=== PATIENT | female | born 1945 | race Caucasian/White ===

== ENCOUNTER 2023-08-17 10:02 | Observation (INO) ==
--- NOTE | 2023-07-25 09:22 | PAT Medication Instructions ---
Medication Instructions Date of Service July 25, 2023 Home Medications alendronate 70 mg tablet 70 mg PO WK amlodipine 5 mg tablet (Norvasc) 5 mg PO HS atenolol 25 mg tablet 25 mg PO HS cholecalciferol (vitamin D3) 50 mcg (2,000 unit) capsule (Vitamin D3) 50 mcg PO QAM donepezil 10 mg tablet 20 mg PO QAM ferrous sulfate 325 mg (65 mg iron) tablet 325 mg PO BID gabapentin 100 mg capsule (Neurontin) 100 mg PO HS losartan 100 mg tablet 100 mg PO QAM memantine 28 mg capsule sprinkle,extended release 24hr (Namenda XR) 28 mg PO QAM pantoprazole 40 mg tablet,delayed release (Protonix) 40 mg PO QAM rosuvastatin 10 mg tablet 10 mg PO HS solifenacin 10 mg tablet 10 mg PO QAM sucralfate 1 gram tablet (Carafate) 1 g PO TIDM DO NOT take the morning of surgery alendronate 70 mg tablet 70 mg PO WK cholecalciferol (vitamin D3) 50 mcg (2,000 unit) capsule (Vitamin D3) 50 mcg PO QAM donepezil 10 mg tablet 20 mg PO QAM ferrous sulfate 325 mg (65 mg iron) tablet 325 mg PO BID losartan 100 mg tablet 100 mg PO QAM solifenacin 10 mg tablet 10 mg PO QAM sucralfate 1 gram tablet (Carafate) 1 g PO TIDM Take morning of surgery With a small sip of water, OTHERWISE NOTHING TO EAT OR DRINK AFTER MIDNIGHT: memantine 28 mg capsule sprinkle,extended release 24hr (Namenda XR) 28 mg PO QAM pantoprazole 40 mg tablet,delayed release (Protonix) 40 mg PO QAM Take evening before surgery amlodipine 5 mg tablet (Norvasc) 5 mg PO HS atenolol 25 mg tablet 25 mg PO HS ferrous sulfate 325 mg (65 mg iron) tablet 325 mg PO BID gabapentin 100 mg capsule (Neurontin) 100 mg PO HS rosuvastatin 10 mg tablet 10 mg PO HS sucralfate 1 gram tablet (Carafate) 1 g PO TIDM Other Notes If you have any questions please call us at [phone] or [phone] or [phone] or [phone]
--- NOTE | 2023-07-28 10:43 | Anesthesiology Consultation ---
Date of Service July 28, 2023 Assessment & Plan (1) Encounter for pre-operative examination: - Check BSG AM DOS - Infectious disease screening: Per assessment on 07/28/23: No known infectious disease contacts or current infectious disease symptoms. No noted recent Covid positive test result. - Outpatient joint assessment: Pt currently scheduled for inpatient pathway. If surgeon requests review for outpatient joint pathway, patient is not recommended candidate for outpatient joint program from anesthesia standpoint. - Abnormal Preop testing: Preop testing 07/28/23 notes elevated A1C at 6.8% and glucose at 175. No definitive dx of diabetes per patient but does note possible hx of "borderline" labs findings r/t glucose. Left message with surgeon's office to make them aware. Note written to PCP regarding elevated A1C/glucose- Awaiting response ( Internal medicine). Chart Review Chart Review: Patient seen in Pre Admission Testing Teaching & Discussion Pre-Anesthesia Teaching/Discussion Notes: Instructed NPO after midnight before surgery,except medications with 15 cc of water. Medication instructions provided according to the PAT guidelines. p History Surgery Operation Date: 08/17/23 10:30 Proposed Procedures p Right Total Shoulder Arthroplasty Reverse - Omar Brown M.D. Height/Weight Height: 5 ft 2 in Weight: 57.4 kg Allergies Allergy/AdvReac Type Severity Reaction Status Date / Time No Known Allergies Allergy Verified 07/24/23 09:21 Medications Home Medications Medication Instructions Recorded Confirmed Last Taken alendronate 70 mg tablet 70 mg PO WK 07/24/23 07/24/23 Unknown amlodipine 5 mg tablet (Norvasc) 5 mg PO HS 07/24/23 07/24/23 Unknown atenolol 25 mg tablet 25 mg PO HS 07/24/23 07/24/23 Unknown cholecalciferol (vitamin D3) 50 50 mcg PO QAM 07/24/23 07/24/23 Unknown mcg (2,000 unit) capsule (Vitamin D3) donepezil 10 mg tablet 20 mg PO QAM 07/24/23 07/24/23 Unknown ferrous sulfate 325 mg (65 mg 325 mg PO BID 07/24/23 07/24/23 Unknown iron) tablet gabapentin 100 mg capsule 100 mg PO HS 07/24/23 07/24/23 Unknown (Neurontin) losartan 100 mg tablet 100 mg PO QAM 07/24/23 07/24/23 Unknown memantine 28 mg capsule 28 mg PO QAM 07/24/23 07/24/23 Unknown sprinkle,extended release 24hr (Namenda XR) pantoprazole 40 mg tablet,delayed 40 mg PO QAM 07/24/23 07/24/23 Unknown release (Protonix) rosuvastatin 10 mg tablet 10 mg PO HS 07/24/23 07/24/23 Unknown solifenacin 10 mg tablet 10 mg PO QAM 07/24/23 07/24/23 Unknown sucralfate 1 gram tablet (Carafate) 1 g PO TIDM 07/24/23 07/24/23 Unknown Aduhelm MONTHLY 07/28/23 Unknown Past Medical History Medical History Diabetes Preop testing 07/28/23 notes elevated A1C at 6.8% and glucose at 175. No definitive dx of diabetes per patient but does note possible hx of "borderline" labs findings r/t glucose History of stroke 10+ years ago- no residual issues Hyperlipidemia Osteoarthritis Hypertension Dementia "Early stages" > short term memory issues Exercise / Class Metabolic Activity II 4-5 Yardwork/Stairs/Walk up hill (one FS (no CP, no SOB)) Past Family History Family History Other No family history of adverse response to anesthesia Past Surgical History Surgical History S/P LISANDRO-BSO History of cholecystectomy History of appendectomy History of tonsillectomy History of esophagogastroduodenoscopy (EGD) Past Anesthesia History No Hx of Anesthesia Complications and No Family Hx of Anesthesia Complications History of PONV No Hx of PONV and No Hx of Motion Sickness Social History Smoking Status: Never smoker Do You Dip or Chew Tobacco: No Hx Alcohol Use: No Hx Substance Use: No substance use type: does not use Review of Systems Patient denies chest pain, shortness of breath, dyspnea on exertion, fever, chills, cough, wheezing, palpitations. Physical Exam Vital Signs VITALS BP 104/64 P 95%RA TEMP 98.9 SP02 71 RESP 16 PHYSICAL Full cervical extension range of motion. Full TMJ range of motion. TMD 3 finger breaths Mallampati Score 2 Dentition: intact Lungs: clear throughout to auscultation Cardiac: regular rate and rhythm, no murmurs noted Spine: normal Carotid arteries: negative bruit Extremities: no LE edema Lab Results Anesthesia Preop Results Results Anesthesia Widget: WBC 9.28 K/ul (4.8-10.8) 07/28/23 Hgb 12.1 g/dl (12.0-16.0) 07/28/23 Hct 37.9 % (37.0-47.0) 07/28/23 Plt 194 K/uL (130-400) 07/28/23 Na 138 mmol/L (136-145) 07/28/23 K 3.9 mmol/L (3.5-5.1) 07/28/23 Cl 101 mmol/L (98-107) 07/28/23 CO2 29 mmol/L (21-32) 07/28/23 BUN 20 mg/dl (6-23) 07/28/23 Creat 0.79 mg/dl (0.6-1.2) 07/28/23 Glucose Level 175 mg/dl (70-99(Fasting)) H 07/28/23 PT 11.0 Seconds (9.0-12.0) 07/28/23 PTT 26 Seconds (21-31) 07/28/23 INR 1.0 (0.9-1.1) 07/28/23 HA1c 6.8 % (4.5-5.6) H 07/28/23 Urine Color Dark Yellow 07/28/23 Urine Appearance Cloudy (Clear) A 07/28/23 Urine pH 5.5 (4.5-7.5) 07/28/23 Urine Specific [place] 1.025 (1.000-1.030) 07/28/23 Urine Protein Trace (Negative) H 07/28/23 Urine Glucose (UA) Negative (Negative) 07/28/23 Urine Ketones Trace (Negative) H 07/28/23 Urine Blood Negative (Negative) 07/28/23 Urine Nitrite Negative (Negative) 07/28/23 Urine Bilirubin Negative (Negative) 07/28/23 Urine Urobilinogen Negative (Negative) 07/28/23 Urine Leukocyte Esterase Trace (Negative) H 07/28/23 Urine WBC (Auto) 1-5 /hpf (0-5) 07/28/23 Urine RBC (Auto) 0-4 /hpf (0-4) 07/28/23 Urine Hyaline Casts (Auto) 5-10 /lpf (0-5) H 07/28/23 Urine Epithelial Cells (Auto) >30 /lpf (0-5) H 07/28/23 Urine Bacteria (Auto) Negative (Negative) 07/28/23 Blood Type A Positive 07/28/23 Antibody Screen NEGATIVE 07/28/23 Testing Electrocardiogram Date: 07/28/23 NSR at 66bpm. "Normal ECG" Chest X-Ray Date: 07/28/23 FINDINGS: Cholecystectomy. Degenerative changes of the shoulders and spine. Cardiomediastinal and hilar silhouettes are within normal limits. There is no pneumothorax, pleural effusion or airspace consolidation. Limited lateral view secondary to upper extremity positioning. Levoscoliosis of the thoracolumbar junction. IMPRESSION: No acute process.
--- NOTE | 2023-08-16 12:11 | History & Physical Report ---
Date of Service August 16, 2023 Assessment & Plan (1) Right rotator cuff tear arthropathy: Plan: She has obvious severe rotator cuff tear arthropathy. I am surprised she wanted only reports pain for the past 2 months. We discussed conservative management with steroid injections versus definitive surgical intervention with a reverse total shoulder arthroplasty. She did not get any significant improvement from previous injection, and after extensive discussion, they elected for shoulder replacement surgery. I think this is reasonable. Risks, benefits, and alternatives of surgery were explained in detail. The surgical procedure, as well as postoperative recovery and rehabilitation, was also explained in detail. Risks include bleeding; infection; damage to surrounding structures such as nerves, blood vessels, and tendons that run in the area; persistent pain or stiffness; hardware failure; dislocation; brachial plexus palsy; blood clots; or need for further surgery. The patient understands all of this and wishes to proceed with surgery. Risks will be reviewed on the day of surgery and informed consent obtained. History of Present Illness Chief Complaint: Right shoulder pain and weakness Primary Care Provider: Norma Nelson Ms. Matthews is an 78-year-old [id number] female who is referred by Dr. David's team for further evaluation of right shoulder pain and weakness. She is accompanied by her today, who provides the vast majority of the history, as patient is suffering from early Alzheimer's dementia. They report that she really has only had pain and weakness in this right shoulder for about 2 months. She denies any longstanding pain in that shoulder. She had a previous injection done about 2 months ago without any notable improvement in her pain. This pain and weakness is severely limiting to her activities of daily living. She has very poor function because of this. It is waking her up at night. They report that she is fairly healthy other than Alzheimer's dementia. Allergies Allergy/AdvReac Type Severity Reaction Status Date / Time No Known Allergies Allergy Verified 07/24/23 09:21 Home Medications Medication Instructions Recorded Confirmed Type alendronate 70 mg tablet 70 mg PO WK 07/24/23 07/24/23 History amlodipine 5 mg tablet (Norvasc) 5 mg PO HS 07/24/23 07/24/23 History atenolol 25 mg tablet 25 mg PO HS 07/24/23 07/24/23 History cholecalciferol (vitamin D3) 50 50 mcg PO QAM 07/24/23 07/24/23 History mcg (2,000 unit) capsule (Vitamin D3) donepezil 10 mg tablet 20 mg PO QAM 07/24/23 07/24/23 History ferrous sulfate 325 mg (65 mg 325 mg PO BID 07/24/23 07/24/23 History iron) tablet gabapentin 100 mg capsule 100 mg PO HS 07/24/23 07/24/23 History (Neurontin) losartan 100 mg tablet 100 mg PO QAM 07/24/23 07/24/23 History memantine 28 mg capsule 28 mg PO QAM 07/24/23 07/24/23 History sprinkle,extended release 24hr (Namenda XR) pantoprazole 40 mg tablet,delayed 40 mg PO QAM 07/24/23 07/24/23 History release (Protonix) rosuvastatin 10 mg tablet 10 mg PO HS 07/24/23 07/24/23 History solifenacin 10 mg tablet 10 mg PO QAM 07/24/23 07/24/23 History sucralfate 1 gram tablet (Carafate) 1 g PO TIDM 07/24/23 07/24/23 History Aduhelm MONTHLY 07/28/23 History Past Med/Surg History Medical History Diabetes Preop testing 07/28/23 notes elevated A1C at 6.8% and glucose at 175. No definitive dx of diabetes per patient but does note possible hx of "borderline" labs findings r/t glucose History of stroke 10+ years ago- no residual issues Hyperlipidemia Osteoarthritis Hypertension Dementia "Early stages" > short term memory issues Surgical History S/P LISANDRO-BSO History of cholecystectomy History of appendectomy History of tonsillectomy History of esophagogastroduodenoscopy (EGD) Family History Other No family history of adverse response to anesthesia Social History Smoking Status: Never smoker Second Hand Exposure: No; Do You Dip or Chew Tobacco: No; Tobacco Cessation Education Requested by Patient: No Hx Alcohol Use: No Hx Substance Use: No Preferred Language: Bengali Communication Ability: Effective Communication Ability Comment: early stages of dementia; short term memory loss, a&ox3. Esl Professor Required: No Beliefs That Will Affect Care: None Current Living Situation: Spouse Other Information That Helps Us Care for You: No Assistive Devices: Glasses Physical Exam Physical Exam: Examination of the right shoulder shows severe limitation in shoulder range of motion due to pain, with palpable crepitus during motion. She can only actively abduct up to about 45 degrees. Rotator cuff strength is globally weak. Results & Data Diagnostic Findings Previous x-rays of the right shoulder from May 2023 were independently interpreted by me. They show advanced glenohumeral joint arthritis with proximal migration of the humeral head. MRI of the right shoulder from May 2023 was independently interpreted by me. It shows severe glenohumeral joint arthritis with large osteophyte formation. There is significant proximal migration of the humeral head with secondary remodeling changes on the undersurface of the acromion consistent with rotator cuff arthropathy. There is a massive, full-thickness, retracted rotator cuff tear with near complete fatty atrophy of the rotator cuff muscle bellies.
[~2023-08-17 10:02] MED LIST: ACETAMINOPHEN 500 MG TAB PO SCH; BUPIVACAINE 0.5 % 5 MG/1 ML PF 10ML VIAL ONE; FAMOTIDINE 20 MG TAB PO SCH; GABAPENTIN 300 MG CAP PO SCH; LR 15ML/HR IV SCH; LR 60ML/HR IV SCH; TRANEXAMIC ACID 1,000 MG **IV Pre-op IV SCH; ceFAZolin 2000MG 2,000 MG/15 ML SYR IV SCH; dexAMETHasone 4 MG TAB PO SCH
[2023-08-17] MEDS ORDERED: DEXAMETHASONE SOD INJ 4 MG/ML VIAL ONE ×2 (11:24→15:54)
[2023-08-17] MEDS ORDERED: ONDANSETRON INJ 2 MG/ML 2 ML VIAL ONE ×2 (11:24→15:54)
[2023-08-17] MEDS ORDERED: LIDOCAINE 2% 2 ML VIAL/AMP(20MG/ML) INFIL ONE ×2 (11:24→14:16)
[2023-08-17] MEDS ORDERED: PROPOFOL IV EMULSION 10 MG/ML 20 ML VIAL IV ONE (11:24)
[2023-08-17] MEDS ORDERED: MIDAZOLAM HCL 1 MG/ML 2ML VIAL ONE (11:25)
[2023-08-17] MEDS ORDERED: fentaNYL citrate PF 100 MCG/2 ML VIAL ONE (11:25)
[2023-08-17] MEDS ORDERED: fentaNYL citrate PF 100 MCG/2 ML VIAL IV PRN (12:27)
[2023-08-17] MEDS ORDERED: ePHEDrine sulfate 50 MG/ML AMP IV PRN (12:27)
[2023-08-17] MEDS ORDERED: ATROPINE SULFATE 0.1 MG/ML 10ML SYR IV PRN (12:27)
[2023-08-17] MEDS ORDERED: ONDANSETRON INJ 2 MG/ML 2 ML VIAL IV PRN ×2 (12:27→17:51)
[2023-08-17] MEDS ORDERED: ROCURONIUM BROMIDE 10 MG/ML 5 ML VIAL IV ONE (14:16)
[2023-08-17] MEDS ORDERED: PHENYLEPHRINE HCL 10 MG/ML VIAL ONE (14:54)
--- NOTE | 2023-08-17 14:58 | History & Physical Bridge Note ---
Date of Service August 17, 2023 History & Physical Bridge Note I have examined the patient, reviewed the History & Physical and in the interval since the performance of the History & Physical I have noted the following changes of clinical significance: no changes noted
[2023-08-17] MEDS ORDERED: SUGAMMADEX SODIUM 200 MG/2 ML VIAL IV ONE (16:37)
--- NOTE | 2023-08-17 16:45 | Operative Report ---
Post Operative Report Pre & Post Diagnosis Operation Date: 08/17/23 11:55 Pre-Op Diagnosis: Right shoulder rotator cuff tear arthropathy Post-Op Diagnosis: Right shoulder rotator cuff tear arthropathy I identified the patient and participated in the time-out.: Yes Procedure Operation Date: 08/17/23 11:55 Actual Procedures Right reverse total shoulder arthroplasty (81641) Open biceps tenodesis (49582) - Omar Borwn M.D. Surgeon Omar Brown MD Marine Rigger Jay Arciniega PA-C Estimated Blood Loss 70 Findings Consistent with Post-Op Diagnosis Specimens None Drains None Anesthesia Type General Regional Complications none Disposition Disposition: Recovery Room Indications Ms. Matthews is an 78-year-old female with chronic right shoulder pain and weakness. History, clinical exam, and imaging were consistent with the above diagnosis. Risks, benefits, and alternatives of surgery were explained in detail. The patient understood all this and wished to proceed. Description of Procedure Components Implanted: Tornier Reverse Total Shoulder implants Perform glenoid baseplate: 25mm, 15 degree full wedge with 6.5mm central screw and 5.0mm peripheral screws x 4 Glenosphere: 36mm standard Ascend Flex humeral stem: 2B Standard length (70mm) Humeral tray: 1.5 mm offset, +0mm thickness Polyethylene insert: 36mm, +6mm thickness Patient was identified in the preoperative holding area. Operative extremity was marked. Regional blockade was given by the Anesthesia Staff. Patient was then brought back to the operating room, and general anesthesia was induced without complication. Appropriate weight-based dose of Ancef was infused intravenously for antibiotic prophylaxis. The patient was then placed in the beachchair position. Right arm was then prepped and draped in a standard sterile fashion using Chlorhexidine prep. A standard deltopectoral incision was made through the skin and subcutaneous tissue. The cephalic vein was identified and retracted medially. Small branches to the deltoid were coagulated as necessary. The clavipectoral fascia was then incised and the subdeltoid space was opened. The rotator cuff was found to be deficient, and I therefore decided to perform a reverse total shoulder arthroplasty as planned preoperatively. The biceps tendon was identified within the bicipital groove and tenodesed at the superior border of the pectoralis tendon with #2 FiberWire suture. The biceps tendon was then divided proximal to the tenodesis site and the rotator interval was opened. The proximal portion of the biceps tendon was excised. The remaining subscapularis tendon was elevated subperiosteally off of the lesser tuberosity. The glenohumeral joint was then dislocated, and large osteophytes were debrided with a ronguer. The intramedullary canal of the humerus was then opened with a canal finder. The humeral head cut was then made in the appropriate inclination and version using the cutting guide. The humeral canal was then sequentially broached to the appropriate size. A protective cap was then placed on top of the humeral trial. I then turned my attention to the glenoid. The proximal stump of the biceps tendon was excised, along with the labrum circumferentially around the glenoid. The Blueprint drill guide was then positioned on the glenoid, and the guidepin was then inserted. The 15 degree angled reamer was then inserted over the guidepin and an reamed to an appropriate depth. The central screw hole was drilled, and appropriate length 6.5mm central screw was selected. The baseplate was then implanted into place according to our preoperative Blueprint plan by tightening down the central screw. A peripheral 5mm nonlocking screw was placed postero-superiorly first for additional compression of the baseplate, and then additional locking 5 mm peripheral screws were placed to complete fixation of the baseplate. Glenosphere was then impacted and secured. A trial humeral tray and insert were placed on the trial humeral stem, and a trial reduction was carried out. Once I achieved acceptable joint stability and range of motion with the trial implants, the final humeral implants were assembled on the back table and then impacted into position. The shoulder was then reduced and taken through full range of motion to ensure good stability and acceptable motion. Wound was then copiously irrigated with sterile saline. Deep fascia was closed with 0 V-lock suture. Subcutaneous tissue was closed with 2-0 V-lock, and skin was closed with 3-0 V-lock. Skin was then sealed with Dermabond. Sterile dressings were then applied with a waterproof silver-impregnated dressing, and the arm was placed into a sling. The patient was awakened from anesthesia and taken to the Post Anesthesia Care Unit in stable condition. There were no immediate complications from the procedure. I was present and scrubbed for the entire procedure, with the exception of final skin closure and dressing application. Due to the complex nature of the procedure, the entire surgery was performed with the operational assistance of Jay Arciniega PA-C. The assistant gm of content & delivery, under direct supervision, was involved in the performance of all aspects of the surgical procedure including hemostasis, tissue incision and retraction, instrument management, patient positioning, and wound closure. I attest to the content of the Intraoperative Record and any orders documented therein. Any exceptions are noted below.
--- NOTE | 2023-08-17 17:44 | Anesthesiology Progress Note ---
Date of Service August 17, 2023 Anesthesia Post Procedure Vital Signs Vital Signs: Temp Pulse Pulse Resp BP Pulse Ox O2 Del Method 08/17/23 17:30 63 19 126/68 100 Oxymask 08/17/23 17:20 70 17 114/86 96 Oxymask 08/17/23 17:10 64 19 128/69 98 Oxymask 08/17/23 17:04 36.5 C 63 21 127/66 98 Oxymask 08/17/23 11:03 36.6 C 62 20 138/77 99 Room Air O2 Flow Rate 08/17/23 17:30 2 08/17/23 17:20 2 08/17/23 17:10 4 08/17/23 17:04 6 08/17/23 11:03 Transfer of Care Handoff Completed per policy Notes Mental Status: alert / awake / arousable Patient Amnestic to Procedure: Yes Nausea / Vomiting: adequately controlled Pain: adequately controlled Airway Patency, RR, SpO2: stable & adequate BP & HR: stable & adequate Hydration State: stable & adequate Anesthetic Complications: no major complications apparent and Pt Satisfied with anesthetic care
[2023-08-17] MEDS ORDERED: SODIUM CHLORIDE 0.9% 1,000 ML IV SCH (17:51)
[2023-08-17] MEDS ORDERED: METOCLOPRAMIDE HCL INJ 5 MG/ML 2 ML VIAL IV PRN (17:51)
[2023-08-17] MEDS ORDERED: MAGNESIUM HYDROXIDE SUSP 30 ML UDC PO PRN (17:51)
[2023-08-17] MEDS ORDERED: oxyCODONE HCL IR 5 MG TAB (IMMEDIATE RELEASE) PO PRN (17:51)
[2023-08-17] MEDS ORDERED: NALOXONE HCL 0.4 MG/1 ML VIAL/CARP IV PRN (17:51)
[2023-08-17] MEDS ORDERED: bisacodyL 10 MG SUPP PR PRN (17:51)
--- NOTE | 2023-08-17 17:59 | XRay Report ---
XR shoulder RT min 2V routine CLINICAL HISTORY: Post shoulder surgery COMPARISON STUDY: None. FINDINGS: Status post reverse right total shoulder arthroplasty. The hardware is intact. No acute fra cture or dislocation. IMPRESSION: Status post reverse right total shoulder arthroplasty. No evidence for hardware complica tion. ACT 112: Negative or not required by law. Electronically signed by: Haim Toledo M.D. 08/17/2023 5:57 PM
[2023-08-17] MEDS: ACETAMINOPHEN 500 MG TAB PO SCH ×2 (19:41→23:15)
[2023-08-17] MEDS: MEMANTINE HCL 10 MG TAB PO SCH (20:06)
[2023-08-17] MEDS: DOCUSATE SODIUM 100 MG CAP PO SCH (20:06)
[2023-08-17] MEDS: IBUPROFEN 600 MG TAB PO SCH (20:08)
[2023-08-17] MEDS ORDERED: SENNA 8.6 MG TAB PO SCH (21:00)
[2023-08-17] MEDS ORDERED: ATENOLOL 25 MG TABLET PO SCH (21:00)
[2023-08-17] MEDS ORDERED: ROSUVASTATIN CALCIUM 10 MG TAB PO SCH (21:00)
[2023-08-17] MEDS ORDERED: amLODIPine BESYLATE 5 MG TAB PO SCH (21:00)
[2023-08-17] MEDS ORDERED: GABAPENTIN 100 MG CAP PO SCH (21:00)
[2023-08-17] MEDS: ceFAZolin 2000MG 2,000 MG/15 ML SYR IV SCH (22:13)
[2023-08-18] MEDS: IBUPROFEN 600 MG TAB PO SCH (03:12)
[2023-08-18] MEDS: ceFAZolin 2000MG 2,000 MG/15 ML SYR IV SCH (05:40)
[2023-08-18] MEDS: ACETAMINOPHEN 500 MG TAB PO SCH (05:40)
[2023-08-18 07:46] LABS: Hematocrit (blood only) 35.1 % (37.0-47.0); Hemoglobin 11.5 g/dl (12.0-16.0); Mean Corpuscular Hemoglobin 27.8 pg (25.0-34.0); Mean Corpuscular Hgb Conc 32.8 g/dL (32.0-36.0); Mean Corpuscular Volume 84.8 fL (80.0-100.0); Platelet Count 199 K/uL (130-400); RDW Coefficient of Variation 13.8 % (11.5-14.5); RDW Standard Deviation 43.2 fL (36.4-46.3); Red Blood Count 4.14 M/uL (4.20-5.40); White Blood Count 23.29 K/ul (4.8-10.8)
[2023-08-18] MEDS: MEMANTINE HCL 10 MG TAB PO SCH (07:54)
[2023-08-18] MEDS: DOCUSATE SODIUM 100 MG CAP PO SCH (07:54)
[2023-08-18 08:04] LABS: BUN Creatinine Ratio 25.5 (10-20); Calcium 8.6 mg/dl (8.6-10.3); Creatinine Clr Calc Pharmacy 34.8 ml/min; Est GFR (African American) 60.2 ml/min; Est GFR (Non-African American) 51.9 ml/min; Potassium 4.5 mmol/L (3.5-5.1)
--- NOTE | 2023-08-18 08:06 | Orthopedic Progress Note ---
Date of Service August 18, 2023 Assessment & Plan (1) Status post reverse total replacement of right shoulder: Plan: 78 yo female stable POD #1 s/p right reverse TSA 1. Med management 2. DVT prophylaxis- ASA, SCDs 3. PT/OT 4. D/C planning- home w/ OPPT Admission and Anticipated Discharge Date Admission Date: August 17, 2023 Subjective Pt resting in bed, alert, pain controlled, denies complaints Physical Exam Physical Exam: Silverlon dressing in place, sling in place, pt with wrist drop likely secondary to resolving anesthesia block Results & Data Vital Signs (Past 12 Hours) Vital Signs Temp Pulse Resp BP Pulse Ox O2 Del Method 08/18/23 07:35 36.6 C 58 L 16 145/88 H 95 Room Air 08/18/23 05:45 36.5 C 68 16 160/86 H 97 Room Air 08/18/23 01:00 36.8 C 61 18 108/66 96 Room Air 08/17/23 21:11 36.6 C 63 18 119/70 96 Room Air 08/17/23 20:10 36.6 C 78 18 114/73 96 Room Air Laboratory Results 08/18/23 08/18/23 08/17/23 Range/Units 07:40 07:22 17:09 WBC 23.29 H (4.8-10.8) K/ul RBC 4.14 L (4.20-5.40) M/uL Hgb 11.5 L (12.0-16.0) g/dl Hct 35.1 L (37.0-47.0) % MCV 84.8 (80.0-100.0) fL MCH 27.8 (25.0-34.0) pg MCHC 32.8 (32.0-36.0) g/dL RDW Std Deviation 43.2 (36.4-46.3) fL RDW Coeff of Maria Guadalupe 13.8 (11.5-14.5) % Plt Count 199 (130-400) K/uL MPV 11.0 (9.4-12.4) fL Sodium Pending Potassium Pending Chloride Pending Carbon Dioxide Pending Anion Gap Pending BUN Pending Creatinine Pending Est Cr Clr Drug Dosing Pending Est GFR ( Amer) Pending Est GFR (Non-Af Amer) Pending BUN/Creatinine Ratio Pending Glucose Pending POC Glucose 224 H 172 H (70-99) mg/dl Calcium Pending 08/17/23 Range/Units 10:59 WBC (4.8-10.8) K/ul RBC (4.20-5.40) M/uL Hgb (12.0-16.0) g/dl Hct (37.0-47.0) % MCV (80.0-100.0) fL MCH (25.0-34.0) pg MCHC (32.0-36.0) g/dL RDW Std Deviation (36.4-46.3) fL RDW Coeff of Maria Guadalupe (11.5-14.5) % Plt Count (130-400) K/uL MPV (9.4-12.4) fL Sodium Potassium Chloride Carbon Dioxide Anion Gap BUN Creatinine Est Cr Clr Drug Dosing Est GFR ( Amer) Est GFR (Non-Af Amer) BUN/Creatinine Ratio Glucose POC Glucose 141 H (70-99) mg/dl Calcium
[2023-08-18 08:21] LABS: Basophils # (auto) 0.02 K/uL (0.00-0.20); Basophils % (auto) 0.1 %; Immature Granulocytes # (auto) 0.18 K/uL (0.01-0.20); Immature Granulocytes % (auto) 0.8 %; Lymphocytes # (auto) 0.79 K/uL (1.20-3.40); Lymphocytes % (auto) 3.4 %; Monocytes # (auto) 0.64 K/uL (0.11-0.59); Monocytes % (auto) 2.7 %; Neutrophils # (auto) 21.66 K/uL (1.40-6.50); Polychromasia 1+
[2023-08-18] MEDS ORDERED: MULTIVITAMIN TAB PO SCH (09:00)
[2023-08-18] MEDS ORDERED: CHOLECALCIFEROL 1,000 UNITS 25 MCG TAB PO SCH (09:00)
[2023-08-18] MEDS ORDERED: FERROUS SULFATE 325 MG TAB PO SCH (09:00)
[2023-08-18] MEDS ORDERED: OXYBUTYNIN CHLORIDE XL 5 MG TABCR PO SCH (09:00)
[2023-08-18] MEDS ORDERED: DONEPEZIL HCL 10 MG TAB PO SCH (09:00)
[2023-08-18] MEDS ORDERED: PANTOprazole 40 MG TAB PO SCH (09:00)
[2023-08-18] MEDS ORDERED: LOSARTAN POTASSIUM 50 MG TAB PO SCH (09:00)
[2023-08-18] MEDS ORDERED: ASPIRIN 325 MG ECTAB PO SCH (09:00)
--- NOTE | 2023-08-18 12:53 | Discharge Summary ---
Date of Service August 18, 2023 Admission HPI Per Admitting Provider Ms. Matthews is an 78-year-old [id number] female who is referred by Dr. David's team for further evaluation of right shoulder pain and weakness. She is accompanied by her today, who provides the vast majority of the history, as patient is suffering from early Alzheimer's dementia. They report that she really has only had pain and weakness in this right shoulder for about 2 months. She denies any longstanding pain in that shoulder. She had a previous injection done about 2 months ago without any notable improvement in her pain. This pain and weakness is severely limiting to her activities of daily living. She has very poor function because of this. It is waking her up at night. They report that she is fairly healthy other than Alzheimer's dementia. Principal Diagnosis Right shoulder rotator cuff tear arthropathy Discharge Data Allergies Allergy/AdvReac Type Severity Reaction Status Date / Time No Known Allergies Allergy Verified 08/17/23 10:56 Procedures Performed Operation Date: 08/17/23 11:55 Actual Procedures p Right Total Shoulder Arthroplasty Reverse(Right) - Omar Brown M.D. Ordered Studies 08/17/23 05:00 US - OR guided needle placemen Routine Hospital Course (1) Right rotator cuff tear arthropathy: Patient underwent a right reverse total shoulder arthroplasty on the date of admission. Patient tolerated the procedure well and was transferred up to the general orthopedic surgery floor in stable condition. Perioperative antibiotic coverage was initiated, and continued for 24 hours postoperatively. DVT prophylaxis was initiated consisting of SCDs and aspirin 325 mg daily. Perioperative pain control regimen was transitioned to strictly oral pain medications by postoperative day 1. On postoperative day 1 the patient was doing very well. Pain was well controlled, and patient was mobilizing well with therapy. Patient was determined be safe and ready for discharge to home. Total Time Total Time Spent Total Time Spent (In Minutes): 15 Discharge Plan Discharge Items Patient Disposition: Home - Self-Care Reason For Visit: RIGHT REVERSE TOTAL SHOULDER REPLACEMENT Discharge Diagnosis: Right shoulder rotator cuff tear arthropathy Activity: Per Instructions section Non-emergency contact: Surgeon Call non-emergency contact if: your pain is not controlled, your temperature is above 101.5, your wound has increased redness and your wound has increased drainage Follow-up/Referrals: Omar Brown M.D. [Physician] - Norma Nelson M.D. [Primary Care Provider] - Diet: Carb Consistent or DM2 Addtl Attending Provider Instructions: Things to Watch Out For -Go to the Emergency Room if you have sudden onset of nausea, vomiting, chest pain, shortness of breath, or uncontrollable pain. -Call the clinic or go to the Emergency Room if you have a sudden increase in the amount of wound drainage or the drainage becomes thick, yellow or green, or foul-smelling. -For routine questions, call the clinic at [phone] during regular business hours (8am-5pm). For urgent issues after regular business hours, you may call the clinic to be connected to the on-call physician. Dressings -A special waterproof, silver-impregnated dressing was placed on your shoulder. Keep this dressing in place for 1 week after surgery. You may shower with the waterproof dressing in place, but do not soak the dressing in the bathtub or pool. -One week after surgery, you may remove the waterproof dressing. You may continue to shower, and let water run BRIEFLY over the incision, but do not soak the incision in the bathtub or pool for 2 weeks. You may also gently clean the incision with mild soap and water; pat the incision dry after cleaning-do not rub the incision. Apply a new dressing daily thereafter. Shoulder Exercises -Keep your operative shoulder in the sling for comfort, except as detailed below. -You should come out of the sling 4-5 times a day for passive pendulum exercises: lean over and swing your arm in a circular pattern. -You should also do active-assisted forward flexion exercises: use your opposite hand to lift your operative arm forward to 90 degrees. -Do not use your arm to push yourself up out of bed or up from a seated position. -Do not flex your elbow (curl motion) or supinate your forearm (rotating palm up) against resistance. Ice Pack -You may use an ice pack for pain relief. You should use it 20-30 minutes at a time. Place a towel between the ice pack and your skin to prevent frostbite. -You should use the ice pack fairly regularly for the first 1-2 weeks after surgery to help reduce pain and inflammation. -About 2 weeks after your surgery, you should start using heat to loosen up your shoulder prior to doing your stretching exercises, then use the cooling sleeve after your exercises are complete to reduce swelling and pain. Pain Medicines -Your prescriptions for pain medications have already been sent to the pharmacy on file at [facility]. -You have been prescribed an anti-inflammatory (Motrin/ibuprofen) and a non- narcotic pain medicine (Tylenol/acetaminophen). These are your primary pain medications. Take them each every 6 hours as instructed. It is recommended that you stagger these medicines every 3 hours (i.e. take ibuprofen at 8:00 am, then acetaminophen at 11:00 am, then ibuprofen at 2:00 pm, etc) -DO NOT take any additional anti-inflammatories (Advil, Aleve/naproxen, Mobic/meloxicam, Celebrex) or any additional Tylenol/acetaminophen products with these prescribed medications. -You have also been prescribed an additional narcotic pain medication (oxycodone). Take this medicine ONLY for breakthrough pain not controlled by the ibuprofen and acetaminophen. -Do not drive or operate heavy machinery while taking the narcotic medication. -Common side effects of narcotic pain medicines include itching, nausea, constipation, and feeling "loopy". However, if you develop a rash or hives, stop taking the medicine and call the clinic. If you develop swelling in your throat or difficulty breathing, go to the Emergency Room or call 911 IMMEDIATELY. -You may take over the counter stool softeners if needed for constipation. Aspirin -Take a full strength (325mg) aspirin every day for 4 weeks (28 days) to prevent blood clots. -If you were taking a baby aspirin (81mg) prior to surgery, you may resume taking this 81mg dose after you complete the 28-day course of the 325mg strength dose; do not take the 325mg dose in addition to your 81mg dose. -Be aware that you will bruise easier while taking Aspirin; this is normal. However, if you develop a significantly large area of swelling after an injury, or have a cut that will not stop bleeding, call the clinic or go to the Emergency Room immediately. Pending Studies at Discharge: No Stand-Alone Forms: [email or web address] Medications and DC Order Prescriptions: Continued donepezil 10 mg Tablet 20 mg PO QAM alendronate [Fosamax] 70 mg Tablet 70 mg PO WK atenolol 25 mg Tablet 25 mg PO HS amlodipine [Norvasc] 5 mg Tablet 5 mg PO HS pantoprazole [Protonix] 40 mg Tablet,Delayed Release (Dr/Ec) 40 mg PO QAM ferrous sulfate 325 mg (65 mg iron) Tablet 325 mg PO DAILY gabapentin [Neurontin] 100 mg Capsule 100 mg PO HS losartan 100 mg Tablet 100 mg PO QAM rosuvastatin 10 mg Tablet 10 mg PO HS solifenacin 10 mg Tablet 10 mg PO QAM cholecalciferol (vitamin D3) [Vitamin D3] 50 mcg (2,000 unit) Capsule 50 mcg PO QAM memantine [Namenda XR] 28 mg Capsule,Sprinkle,Er 24hr 28 mg PO QAM Aduhelm MONTHLY Discharge Orders: Discharge Order (Routine); Ordered 08/18/23 Ordered By: Jay Arciniega Admission Data Admit Date/Time: 08/17/23 16:58 Attending Provider: Omar Brown Admit Provider: Omar Brown Primary Care Provider: Norma Nelson Other Interventions: Discharge Summary Assessment (RN) Last Done: 08/18/23 12:04
== END 2023-08-18 12:04 | disposition home or self-care (01) ==
LOC: 3N 10:02 → ASU 10:02